=== PATIENT | female | born 1935 | race Caucasian/White ===

== ENCOUNTER 2024-05-04 16:42 | Inpatient (IN) | payer OTHER ==
[2024-05-04] MEDS: LACTATED RINGERS SOLUTION 1000 ML INFUS.BAG IV ONE (17:47)
[2024-05-04 18:02] LABS: VENOUS BASE EXCESS 4.3 mmol/L (-2-2); VENOUS O2 SATURATION 39.7 % (70-80); VENOUS PCO2 51.7 mmHg (38-52); VENOUS PH 7.39 (7.310-7.410)
[2024-05-04 18:03] LABS: BASO % 0.1 % (0-2.0); EOS % 0.9 % (0-4.5); HEMATOCRIT 47.2 % (32.4-45.2); HEMOGLOBIN 14.8 GM/dL (10.7-15.3); LYMPH % 27.2 % (8-40); MCH 29.1 pg (25.7-33.7); MCHC 31.4 g/dl (32.0-36.0); MEAN CELL VOLUME 92.7 fl (80-96); MEAN PLT VOLUME 11.4 fl (7.5-11.1); MONO % 5.6 % (3.8-10.2); NEUT % 66.2 % (42.8-82.8); PLATELET COUNT 193 10^3/uL (134-434); RBC 5.09 M/mm3 (3.60-5.2)
[2024-05-04 18:19] LABS: EPI CELLS 9 /uL (0-25.1); HYALINE CASTS 0 /uL (0-3.1); PH,URINE 5.5 (5.0-8.0); URINE APPEARANCE CLEAR; URINE BACTERIA 826 /uL (0-1359); URINE BILIRUBIN NEGATIVE (NEGATIVE); URINE COLOR YELLOW; URINE GLUCOSE (UA) NEGATIVE (NEGATIVE); URINE KETONE TRACE (NEGATIVE); URINE LEUK ESTERASE NEGATIVE (NEGATIVE); URINE NITRITE NEGATIVE (NEGATIVE); URINE PROTEIN 1+ (NEGATIVE); URINE WBC 9 /uL (0-25.8)
[2024-05-04 18:24] LABS: CHLORIDE 134 mmol/L (98-107); POTASSIUM 4.4 mmol/L (3.5-5.1)
[2024-05-04 18:26] LABS: URINE RBC 15.6 /uL (0-23.9)
[2024-05-04 18:27] LABS: CALCIUM 10.2 mg/dL (8.5-10.1)
[2024-05-04 18:28] LABS: ALBUMIN 2.8 g/dl (3.4-5.0); BLOOD UREA NITROGEN 46.2 mg/dL (7-18); CO2 33 mmol/L (21-32); GLUCOSE,RANDOM 130 mg/dL (74-106); MAGNESIUM 2.9 mg/dL (1.8-2.4)
[2024-05-04] MEDS ORDERED: ACETAMINOPHEN INJECTION 100 ML ONE (18:28)
[2024-05-04] MEDS ORDERED: ALBUTEROL SO4 0.083% IH SOL 2.5 MG/3 ML VIAL.NEB. NEB ONE (18:28)
[2024-05-04 18:31] LABS: CREATININE 1.2 mg/dL (0.55-1.3); SGOT/AST 97 U/L (15-37); SGPT/ALT 55 U/L (13-61)
[2024-05-04 18:33] LABS: BILIRUBIN,TOTAL 0.4 mg/dL (0.2-1); TOT PROT 8.4 g/dl (6.4-8.2)
[2024-05-04 18:34] LABS: ALK PHOS 163 U/L (45-117)
[2024-05-04 18:40] LABS: ANION GAP 1 mmol/L (4-13); LACTIC ACID 2.2 mmol/L (0.4-2.0); SODIUM 167 mmol/L (136-145)
[2024-05-04] MEDS: ALBUTEROL SO4 0.083% IH SOL 2.5 MG/3 ML VIAL.NEB. NEB ONE (18:46)
[2024-05-04] MEDS: ACETAMINOPHEN 1000 MG/100 ML BAG IVPB ONE (18:46)
[2024-05-04 19:20] LABS: CHLORIDE 134 mmol/L (98-107); POTASSIUM 5.4 mmol/L (3.5-5.1)
[2024-05-04 19:22] LABS: CALCIUM 8.9 mg/dL (8.5-10.1); CO2 31 mmol/L (21-32); GLUCOSE,RANDOM 142 mg/dL (74-106)
[2024-05-04 19:24] LABS: ANION GAP -2 mmol/L (4-13); SODIUM 163 mmol/L (136-145)
[2024-05-04 19:25] LABS: CREATININE 1.2 mg/dL (0.55-1.3); SGOT/AST 101 U/L (15-37); SGPT/ALT 44 U/L (13-61)
[2024-05-04 19:26] LABS: BILIRUBIN,TOTAL 0.6 mg/dL (0.2-1); TOT PROT 6.9 g/dl (6.4-8.2)
[2024-05-04 19:28] LABS: ALK PHOS 136 U/L (45-117)
[2024-05-04 20:21] LABS: CREATININE, URINE RANDOM < 13.0 mg/dL (30-150)
[2024-05-04 20:37] LABS: LACTIC ACID 2.3 mmol/L (0.4-2.0)
[2024-05-04 21:41] LABS: CHLORIDE 135 mmol/L (98-107); POTASSIUM 3.7 mmol/L (3.5-5.1)
[2024-05-04 21:44] LABS: CALCIUM 9.1 mg/dL (8.5-10.1)
[2024-05-04 21:45] LABS: ALBUMIN 2.4 g/dl (3.4-5.0); BLOOD UREA NITROGEN 41.3 mg/dL (7-18); CO2 27 mmol/L (21-32); GLUCOSE,RANDOM 144 mg/dL (74-106)
[2024-05-04 21:48] LABS: ANION GAP 2 mmol/L (4-13); CREATININE 1.1 mg/dL (0.55-1.3); SGOT/AST 80 U/L (15-37); SGPT/ALT 44 U/L (13-61); SODIUM 164 mmol/L (136-145)
[2024-05-04 21:49] LABS: BILIRUBIN,TOTAL 0.4 mg/dL (0.2-1); TOT PROT 6.8 g/dl (6.4-8.2)
[2024-05-04 21:51] LABS: ALK PHOS 139 U/L (45-117)
[2024-05-05] MEDS: HEPARIN NA (PORCINE) 5,000 UNITS/ML 1ML VIAL SQ SCH (00:43)
[2024-05-05] MEDS: SODIUM CHLORIDE 0.45% 1,000 ML IV SCH (00:45)
[2024-05-05 07:02] LABS: HEMATOCRIT 36.7 % (32.4-45.2); HEMOGLOBIN 11.5 GM/dL (10.7-15.3); MCHC 31.3 g/dl (32.0-36.0); MEAN CELL VOLUME 92.8 fl (80-96); MEAN PLT VOLUME 11.2 fl (7.5-11.1); PLATELET COUNT 122 10^3/uL (134-434); RBC 3.95 M/mm3 (3.60-5.2); RDW 19.5 % (11.6-15.6); WHITE BLOOD COUNT 10.4 K/mm3 (4.0-10.0)
[2024-05-05 07:21] LABS: CHLORIDE 135 mmol/L (98-107); POTASSIUM 3.6 mmol/L (3.5-5.1)
[2024-05-05 07:23] LABS: ALBUMIN 2.2 g/dl (3.4-5.0); CALCIUM 9.1 mg/dL (8.5-10.1); CO2 30 mmol/L (21-32); GLUCOSE,RANDOM 112 mg/dL (74-106); MAGNESIUM 2.5 mg/dL (1.8-2.4)
[2024-05-05 07:27] LABS: PHOSPHOROUS 2.8 mg/dL (2.5-4.9); SGOT/AST 67 U/L (15-37); SGPT/ALT 43 U/L (13-61)
[2024-05-05 07:29] LABS: ALK PHOS 133 U/L (45-117); BILIRUBIN,TOTAL 0.4 mg/dL (0.2-1); TOT PROT 6.3 g/dl (6.4-8.2)
[2024-05-05 07:42] LABS: ANION GAP 0 mmol/L (4-13); SODIUM 166 mmol/L (136-145)
[2024-05-05 13:42] VITALS: BMI 14.7
[2024-05-05] MEDS ORDERED: DEXTROSE 5%-WATER - 1,000 ML with POTASSIUM CHLORIDE 10 MEQ IV SCH (14:00)
[2024-05-05] MEDS: POTASSIUM CHLORIDE 10 MEQ in DEXTROSE 5%-WATER - 1,000 ML IV SCH (15:37)
[2024-05-06 08:21] LABS: CHLORIDE 130 mmol/L (98-107); POTASSIUM 3.7 mmol/L (3.5-5.1)
[2024-05-06 08:22] LABS: SODIUM 161 mmol/L (136-145)
[2024-05-06 08:25] LABS: CALCIUM 9.2 mg/dL (8.5-10.1)
[2024-05-06 08:26] LABS: ALBUMIN 2.2 g/dl (3.4-5.0); ANION GAP 0 mmol/L (4-13); CO2 31 mmol/L (21-32)
[2024-05-06 08:28] LABS: BLOOD UREA NITROGEN 41.5 mg/dL (7-18); GLUCOSE,RANDOM 142 mg/dL (74-106)
[2024-05-06 08:29] LABS: CREATININE 1.1 mg/dL (0.55-1.3); SGOT/AST 50 U/L (15-37); SGPT/ALT 35 U/L (13-61)
[2024-05-06 08:31] LABS: BILIRUBIN,TOTAL 0.4 mg/dL (0.2-1); TOT PROT 6.4 g/dl (6.4-8.2)
[2024-05-06 08:33] LABS: ALK PHOS 129 U/L (45-117)
[2024-05-06] MEDS: POLYETHYLENE GLYCOL (HEALTHYLAX) 3350 17 GM PACKET PO SCH (10:13)
[2024-05-06] MEDS: ASCORBIC ACID 500 MG TABLET (FP) PO SCH (10:13)
[2024-05-06] MEDS: ARTIFICIAL TEARS OPHTHALMIC DROPS OU SCH (11:43)
[2024-05-06] MEDS: VALPROATE SODIUM 250 MG/5 ML UNIT DOSE CUP PO SCH (21:41)
[2024-05-06] MEDS: MELATONIN 5 MG TABLETS PO SCH (21:42)
[2024-05-07] MEDS: VALPROIC ACID 250 MG CAPSULE PO SCH (07:11)
[2024-05-07 07:40] LABS: POTASSIUM 3.7 mmol/L (3.5-5.1)
[2024-05-07 07:48] LABS: BLOOD UREA NITROGEN 26.7 mg/dL (7-18); CREATININE 0.8 mg/dL (0.55-1.3)
[2024-05-07 07:49] LABS: BILIRUBIN,TOTAL 0.4 mg/dL (0.2-1); TOT PROT 5.9 g/dl (6.4-8.2)
[2024-05-07 07:52] LABS: CALCIUM 8.7 mg/dL (8.5-10.1)
[2024-05-07 07:55] LABS: MAGNESIUM 2.3 mg/dL (1.8-2.4)
[2024-05-07 08:05] LABS: HEMOGLOBIN 10.6 GM/dL (10.7-15.3); MCHC 31.2 g/dl (32.0-36.0); MEAN CELL VOLUME 92.9 fl (80-96); MEAN PLT VOLUME 11.4 fl (7.5-11.1); PLATELET COUNT 117 10^3/uL (134-434); RBC 3.66 M/mm3 (3.60-5.2); RDW 18.7 % (11.6-15.6); WHITE BLOOD COUNT 10.3 K/mm3 (4.0-10.0)
[2024-05-07] MEDS ORDERED: COLLAGENASE CLOSTRIDIUM HIST. 30 GRAMS TUBE TP SCH (13:30)
[2024-05-07] MEDS: POTASSIUM CHLORIDE 10 MEQ in DEXTROSE 5%-WATER - 1,000 ML IV SCH (17:42)
[2024-05-08] MEDS: VALPROATE SODIUM 250 MG/5 ML UNIT DOSE CUP PO SCH (06:40)
[2024-05-08 07:36] LABS: HEMATOCRIT 32.6 % (32.4-45.2); HEMOGLOBIN 10.3 GM/dL (10.7-15.3); MCH 29.1 pg (25.7-33.7); MCHC 31.6 g/dl (32.0-36.0); MEAN CELL VOLUME 92.2 fl (80-96); MEAN PLT VOLUME 11.8 fl (7.5-11.1); PLATELET COUNT 121 10^3/uL (134-434); RBC 3.53 M/mm3 (3.60-5.2); RDW 18.8 % (11.6-15.6); WHITE BLOOD COUNT 10.9 K/mm3 (4.0-10.0)
[2024-05-08 07:55] LABS: POTASSIUM 3.7 mmol/L (3.5-5.1)
[2024-05-08 08:20] LABS: CALCIUM 8.5 mg/dL (8.5-10.1)
[2024-05-08 08:22] LABS: ALBUMIN 1.9 g/dl (3.4-5.0); BLOOD UREA NITROGEN 16.1 mg/dL (7-18)
[2024-05-08 08:25] LABS: CREATININE 0.7 mg/dL (0.55-1.3)
[2024-05-08 08:27] LABS: BILIRUBIN,TOTAL 0.4 mg/dL (0.2-1); TOT PROT 5.6 g/dl (6.4-8.2)
[2024-05-08] MEDS: POTASSIUM CHLORIDE 10 MEQ in DEXTROSE 5%-WATER - 1,000 ML IV SCH (14:10)
[2024-05-08] MEDS ORDERED: VALPROATE SODIUM 500 MG/5 ML VIAL IVPB SCH ×2 (16:00→22:00)
[2024-05-08] MEDS: VALPROATE SODIUM IVPB SCH (16:54)
[2024-05-08] MEDS: SODIUM CHLORIDE IVPB SCH (16:54)
[2024-05-09 07:31] LABS: MCH 29.3 pg (25.7-33.7); MCHC 32.5 g/dl (32.0-36.0); MEAN PLT VOLUME 10.8 fl (7.5-11.1); PLATELET COUNT 125 10^3/uL (134-434); RBC 3.77 M/mm3 (3.60-5.2); RDW 17.4 % (11.6-15.6); WHITE BLOOD COUNT 9.2 K/mm3 (4.0-10.0)
[2024-05-09 07:41] LABS: CHLORIDE 111 mmol/L (98-107); POTASSIUM 3.7 mmol/L (3.5-5.1); SODIUM 142 mmol/L (136-145)
[2024-05-09 07:49] LABS: ANION GAP 3 mmol/L (4-13); BLOOD UREA NITROGEN 10.5 mg/dL (7-18); CO2 28 mmol/L (21-32); GLUCOSE,RANDOM 100 mg/dL (74-106)
[2024-05-09 07:52] LABS: CREATININE 0.5 mg/dL (0.55-1.3)
[2024-05-09 07:56] LABS: CALCIUM 6.8 mg/dL (8.5-10.1)
[2024-05-09 09:26] LABS: ALBUMIN 1.9 g/dl (3.4-5.0)
[2024-05-09] MEDS: SODIUM CHLORIDE IVPB SCH (11:15)
[2024-05-09] MEDS: VALPROATE SODIUM IVPB SCH (11:15)
[2024-05-09] MEDS ORDERED: AMINO ACIDS/PROTEIN HYDROLYS 30 ML LIQUID.PKT PO SCH ×2 (17:30)
[2024-05-10 09:19] LABS: ALBUMIN 1.8 g/dl (3.4-5.0); BLOOD UREA NITROGEN 7.3 mg/dL (7-18)
[2024-05-10 09:22] LABS: CREATININE 0.5 mg/dL (0.55-1.3)
[2024-05-10 09:23] LABS: BILIRUBIN,TOTAL 0.4 mg/dL (0.2-1); TOT PROT 5.4 g/dl (6.4-8.2)
[2024-05-10] MEDS: ZINC SULFATE 220 MG CAPSULE (FP) PO SCH (17:25)
[2024-05-10] MEDS: MULTIVITAMINS (DAILY MVI) TABLET (FP) PO SCH (17:25)
[2024-05-11 09:14] LABS: POTASSIUM 4.2 mmol/L (3.5-5.1)
[2024-05-11 09:24] LABS: ALBUMIN 1.8 g/dl (3.4-5.0)
[2024-05-11 09:26] LABS: CREATININE 0.5 mg/dL (0.55-1.3)
[2024-05-11 09:28] LABS: BILIRUBIN,TOTAL 0.4 mg/dL (0.2-1); TOT PROT 5.7 g/dl (6.4-8.2)
[2024-05-11] MEDS: VALPROATE SODIUM 250 MG/5 ML UNIT DOSE CUP PO SCH ×2 (10:41→21:11)
[2024-05-12] MEDS ORDERED: VALPROATE SODIUM 500 MG/5 ML VIAL IVPB ONE (01:30)
[2024-05-12] MEDS: VALPROATE SODIUM IVPB ONE (02:30)
[2024-05-12] MEDS: SODIUM CHLORIDE IVPB ONE (02:30)
[2024-05-12 09:19] LABS: CALCIUM 9.2 mg/dL (8.5-10.1)
[2024-05-12 09:20] LABS: ALBUMIN 1.9 g/dl (3.4-5.0); BLOOD UREA NITROGEN 8.6 mg/dL (7-18)
[2024-05-12 09:23] LABS: CREATININE 0.4 mg/dL (0.55-1.3)
[2024-05-12 09:24] LABS: BILIRUBIN,TOTAL 0.3 mg/dL (0.2-1); TOT PROT 5.8 g/dl (6.4-8.2)
[2024-05-13 15:56] VITALS: RESP 20
[2024-05-13 18:25] VITALS: BP 130/53; PULSE 91; TEMP 97.5
== END 2024-05-13 18:36 | DRG 640 ==
LOC: JER 16:42 → JERBED 19:04 → J4W 05-05 00:41
PROVIDERS: ADMIT Internal Medicine; ATTEND Internal Medicine
DX: E86.0 Dehydration (principal); E43 Unspecified severe protein-calorie malnutrition; Z68.1 Body mass index [BMI] 19.9 or less, adult; I69.351 Hemiplegia and hemiparesis following cerebral infarction affecting right dominant side; N17.9 Acute kidney failure, unspecified; R64 Cachexia; R65.10 Systemic inflammatory response syndrome (SIRS) of non-infectious origin without acute organ dysfunction; E87.0 Hyperosmolality and hypernatremia; R62.7 Adult failure to thrive; G30.9 Alzheimer's disease, unspecified; G40.909 Epilepsy, unspecified, not intractable, without status epilepticus; I10 Essential (primary) hypertension; L89.152 Pressure ulcer of sacral region, stage 2; F02.80 Dementia in other diseases classified elsewhere, unspecified severity, without behavioral disturbance, psychotic disturbance, mood disturbance, and anxiety; E78.5 Hyperlipidemia, unspecified; E87.5 Hyperkalemia; R74.01 Elevation of levels of liver transaminase levels
CPT/HCPCS: 0241U-QW; 36415; 71045-TC-FY; 76775-TC; 80048; 80053; 81003; 82040; 82436; 82550; 82553; 82570; 82803; 82962; 83605; 83735; 84100; 84133; 84300; 84443; 84484; 85025; 85027; 86850; 86900; 86901; 87040; 87086; 93005; 93010; 97161-GP; 99291; J0131; J1644

== ENCOUNTER 2024-05-24 06:58 | Inpatient (IN) | payer OTHER ==
[2024-05-24 07:03] VITALS: BMI 20.7
[2024-05-24] MEDS ORDERED: ACETAMINOPHEN INJECTION 100 ML ONE (08:41)
[2024-05-24 08:45] LABS: BASO % 0.1 % (0-2.0); EOS % 1.2 % (0-4.5); HEMATOCRIT 35.3 % (32.4-45.2); HEMOGLOBIN 11.5 GM/dL (10.7-15.3); LYMPH % 25.2 % (8-40); MCH 29.3 pg (25.7-33.7); MCHC 32.6 g/dl (32.0-36.0); MEAN PLT VOLUME 7.6 fl (7.5-11.1); MONO % 6.7 % (3.8-10.2); NEUT % 66.8 % (42.8-82.8); PLATELET COUNT 427 10^3/uL (134-434); RBC 3.92 M/mm3 (3.60-5.2); RDW 18.8 % (11.6-15.6); WHITE BLOOD COUNT 12.3 K/mm3 (4.0-10.0)
[2024-05-24 08:53] LABS: INR 0.9 (0.83-1.09); PROTHROMBIN TIME (PATIENT) 10.4 SEC (9.7-13.0)
[2024-05-24 08:56] LABS: ACTIVATED PTT 29.2 SECONDS (25.2-36.5)
[2024-05-24 09:18] LABS: POTASSIUM 3.4 mmol/L (3.5-5.1)
[2024-05-24 09:19] LABS: CALCIUM 9.3 mg/dL (8.5-10.1)
[2024-05-24 09:20] LABS: ALBUMIN 1.9 g/dl (3.4-5.0); BLOOD UREA NITROGEN 6.1 mg/dL (7-18)
[2024-05-24] MEDS: SODIUM CHLORIDE 0.9% 1000 ML INFUS.BAG IV ONE (09:20)
[2024-05-24] MEDS: ACETAMINOPHEN 1000 MG/100 ML BAG IVPB ONE (09:20)
[2024-05-24 09:23] LABS: CREATININE 0.4 mg/dL (0.55-1.3)
[2024-05-24 09:25] LABS: BILIRUBIN,TOTAL 0.5 mg/dL (0.2-1); TOT PROT 6.8 g/dl (6.4-8.2)
[2024-05-24 09:39] LABS: EPI CELLS 6 /uL (0-25.1); HYALINE CASTS 0 /uL (0-3.1); URINE APPEARANCE TURBID; URINE BACTERIA >9,000 /uL (0-1359); URINE BILIRUBIN NEGATIVE (NEGATIVE); URINE COLOR YELLOW; URINE GLUCOSE (UA) NEGATIVE (NEGATIVE); URINE KETONE NEGATIVE (NEGATIVE); URINE LEUK ESTERASE 3+ (NEGATIVE); URINE NITRITE NEGATIVE (NEGATIVE); URINE PROTEIN 1+ (NEGATIVE); URINE WBC 1525 /uL (0-25.8)
[2024-05-24 09:42] LABS: URINE RBC 33.3 /uL (0-23.9)
[2024-05-24] MEDS ORDERED: CEFTRIAXONE 1 GM/50 ML BAG ONE (09:59)
[2024-05-24] MEDS: CEFTRIAXONE 1 GM in DEXTROSE 5%-WATER - 100 ML IVPB ONE (10:05)
[2024-05-24] MEDS: LACTATED RINGERS SOLUTION 1000 ML INFUS.BAG IV ONE (11:00)
[2024-05-24] MEDS: KCL 20 MEQ PREMIX BAG 20 MEQ/100 ML INFUS.BAG IVPB ONE (11:06)
[2024-05-24] MEDS: ACETAMINOPHEN 325 MG TABLET (FP) PO SCH (12:06)
[2024-05-24] MEDS: SODIUM CHLORIDE 1,000 ML IV STA (12:45)
[2024-05-24] MEDS: KCL 10 MEQ IVPB 10 MEQ/100 ML INFUS.BAG IVPB SCH (12:45)
[2024-05-24] MEDS ORDERED: KCL 10 MEQ IVPB 10 MEQ/100 ML INFUS.BAG IVPB ONE (12:47)
[2024-05-24] MEDS ORDERED: PATIENT'S OWN MEDICATION (NON-FORMULARY) (Argin/Glut/Cahmb/Collag/Mv-Min [Juven Packet] 1 PO SCH (22:00)
[2024-05-24] MEDS: AMINO ACIDS 4.25%/D5W 2,000 ML IV SCH (23:08)
[2024-05-24] MEDS: VALPROATE SODIUM 250 MG/5 ML UNIT DOSE CUP PO SCH (23:09)
[2024-05-24] MEDS: ASCORBIC ACID 500 MG TABLET (FP) PO SCH (23:10)
[2024-05-24] MEDS: ARTIFICIAL TEARS OPHTHALMIC DROPS OU SCH (23:10)
[2024-05-24] MEDS: LIDOCAINE PATCH REMOVAL MC SCH (23:10)
[2024-05-24] MEDS: MELATONIN 5 MG TABLETS PO SCH (23:10)
[2024-05-25] MEDS: VALPROATE SODIUM 250 MG/5 ML UNIT DOSE CUP PO SCH (06:03)
[2024-05-25] MEDS: ENOXAPARIN NA (PORCINE) 40 MG/0.4 ML DISP.SYRIN SQ SCH (09:39)
[2024-05-25] MEDS: LIDOCAINE 4% PATCH TP SCH (09:39)
[2024-05-25] MEDS: CEFTRIAXONE 1 GM in DEXTROSE 5%-WATER - 50 ML IVPB SCH (09:39)
[2024-05-25 09:58] LABS: HEMOGLOBIN 8.6 GM/dL (10.7-15.3); MCH 29.6 pg (25.7-33.7); MEAN CELL VOLUME 89.9 fl (80-96); MEAN PLT VOLUME 7.7 fl (7.5-11.1); PLATELET COUNT 345 10^3/uL (134-434); RBC 2.89 M/mm3 (3.60-5.2); RDW 18.7 % (11.6-15.6); WHITE BLOOD COUNT 8.7 K/mm3 (4.0-10.0)
[2024-05-25] MEDS ORDERED: SENNOSIDES 8.6MG TABLET (FP) PO SCH (10:00)
[2024-05-25 10:18] LABS: CHLORIDE 107 mmol/L (98-107); SODIUM 139 mmol/L (136-145)
[2024-05-25 10:22] LABS: POTASSIUM 2.7 mmol/L (3.5-5.1)
[2024-05-25 10:25] LABS: ANION GAP 4 mmol/L (4-13); BLOOD UREA NITROGEN 10.9 mg/dL (7-18); CALCIUM 8.4 mg/dL (8.5-10.1); CO2 28 mmol/L (21-32); GLUCOSE,RANDOM 125 mg/dL (74-106); MAGNESIUM 1.5 mg/dL (1.8-2.4)
[2024-05-25 10:26] LABS: ALBUMIN 1.4 g/dl (3.4-5.0)
[2024-05-25 10:28] LABS: SGOT/AST 15 U/L (15-37); SGPT/ALT 9 U/L (13-61)
[2024-05-25 10:29] LABS: CREATININE 0.4 mg/dL (0.55-1.3)
[2024-05-25 10:30] LABS: BILIRUBIN,TOTAL 0.2 mg/dL (0.2-1)
[2024-05-25 10:33] LABS: ALK PHOS 90 U/L (45-117)
[2024-05-25] MEDS: PANTOPRAZOLE 40 MG TABLET PO SCH (10:43)
[2024-05-25] MEDS: MAGNESIUM HYDROX 2400MG/30ML ORAL SUSPENSION 30 ML CUP PO SCH (10:43)
[2024-05-25] MEDS: POLYETHYLENE GLYCOL (HEALTHYLAX) 3350 17 GM PACKET PO SCH (10:43)
[2024-05-25] MEDS: SENNOSIDES 8.6MG TABLET (FP) PO SCH (10:43)
[2024-05-25] MEDS: THIAMINE 100 MG TABLET PO SCH (10:43)
[2024-05-25] MEDS: MAGNESIUM 2GM/50ML STERILE WATER IVPB IVPB ONE (10:45)
[2024-05-25] MEDS: KCL 10 MEQ IVPB 10 MEQ/100 ML INFUS.BAG IVPB SCH (12:12)
[2024-05-25] MEDS: ZINC OXIDE 20% TOPICAL OINTMENT 30 GM TUBE TP SCH (15:33)
[2024-05-25] MEDS: ACETAMINOPHEN 1000 MG/100 ML BAG IVPB PRN (15:40)
[2024-05-25] MEDS: THIAMINE HCL 200 MG/2 ML VIAL IVPB SCH (17:12)
[2024-05-25] MEDS ORDERED: VALPROATE SODIUM 500 MG/5 ML VIAL IVPB SCH (22:00)
[2024-05-25] MEDS: VALPROATE SODIUM INJECTION 750 MG in SODIUM CHLORIDE 100 ML IVPB SCH (23:29)
[2024-05-26] MEDS: SODIUM PHOSPHATE - 30 MM in SODIUM CHLORIDE 500 ML IVPB ONE (03:11)
[2024-05-26] MEDS ORDERED: VALPROATE SODIUM 500 MG/5 ML VIAL IVPB SCH (07:00)
[2024-05-26 10:39] LABS: BASO % 0.2 % (0-2.0); EOS % 1.9 % (0-4.5); HEMATOCRIT 29.1 % (32.4-45.2); HEMOGLOBIN 9.9 GM/dL (10.7-15.3); LYMPH % 28.9 % (8-40); MCH 30.3 pg (25.7-33.7); MCHC 34.1 g/dl (32.0-36.0); MEAN CELL VOLUME 88.6 fl (80-96); MEAN PLT VOLUME 7.3 fl (7.5-11.1); PLATELET COUNT 384 10^3/uL (134-434); RBC 3.28 M/mm3 (3.60-5.2); RDW 18.7 % (11.6-15.6); WHITE BLOOD COUNT 11.2 K/mm3 (4.0-10.0)
[2024-05-26] MEDS: VALPROATE SODIUM INJECTION 500 MG in DEXTROSE 5%-WATER - 100 ML IVPB SCH (10:52)
[2024-05-26 11:01] LABS: CHLORIDE 108 mmol/L (98-107); SODIUM 140 mmol/L (136-145)
[2024-05-26 11:11] LABS: BLOOD UREA NITROGEN 10.2 mg/dL (7-18); CALCIUM 8.2 mg/dL (8.5-10.1); CO2 29 mmol/L (21-32); GLUCOSE,RANDOM 89 mg/dL (74-106)
[2024-05-26 11:12] LABS: MAGNESIUM 1.4 mg/dL (1.8-2.4)
[2024-05-26 11:14] LABS: CREATININE 0.3 mg/dL (0.55-1.3); PHOSPHOROUS 4.2 mg/dL (2.5-4.9); SGOT/AST 16 U/L (15-37); SGPT/ALT 10 U/L (13-61)
[2024-05-26 11:15] LABS: ALBUMIN 1.8 g/dl (3.4-5.0); ANION GAP 4 mmol/L (4-13); BILIRUBIN,TOTAL 0.2 mg/dL (0.2-1); POTASSIUM 2.9 mmol/L (3.5-5.1); TOT PROT 6.3 g/dl (6.4-8.2)
[2024-05-26 11:17] LABS: ALK PHOS 108 U/L (45-117)
[2024-05-26] MEDS: KCL 10 MEQ IVPB 10 MEQ/100 ML INFUS.BAG IVPB SCH (13:15)
[2024-05-26] MEDS: MAGNESIUM SULF 50% (8.12 MEQ/2 ML-1 GM VIAL) IVPB ONE (14:43)
[2024-05-26] MEDS: MAGNESIUM SULFATE IN WATER 4 GM/50 ML BAG IVPB ONE (14:44)
[2024-05-26] MEDS: MAGNESIUM 4GM/H20 - 4 GM/100 ML IVPB IVPB ONE (17:27)
[2024-05-26] MEDS: VALPROATE SODIUM IVPB SCH (21:23)
[2024-05-26] MEDS: DEXTROSE 5% IVPB SCH (21:23)
[2024-05-26] MEDS: WATER IVPB SCH (21:23)
[2024-05-27] MEDS: AMINO ACIDS 4.25%/D5W 2,000 ML IV SCH (07:58)
[2024-05-27] MEDS: AMINO ACIDS 4.25%/D5W 1,000 ML IV SCH (08:00)
[2024-05-27 09:22] LABS: BASO % 0.4 % (0-2.0); EOS % 1.9 % (0-4.5); HEMATOCRIT 34.3 % (32.4-45.2); HEMOGLOBIN 11.4 GM/dL (10.7-15.3); LYMPH % 19.8 % (8-40); MCH 30.1 pg (25.7-33.7); MCHC 33.2 g/dl (32.0-36.0); MEAN CELL VOLUME 90.6 fl (80-96); MEAN PLT VOLUME 7.6 fl (7.5-11.1); MONO % 4.7 % (3.8-10.2); NEUT % 73.2 % (42.8-82.8); PLATELET COUNT 432 10^3/uL (134-434); RBC 3.78 M/mm3 (3.60-5.2); RDW 18.9 % (11.6-15.6); WHITE BLOOD COUNT 10.7 K/mm3 (4.0-10.0)
[2024-05-27 09:43] LABS: BLOOD UREA NITROGEN 4.1 mg/dL (7-18); CALCIUM 8.6 mg/dL (8.5-10.1); MAGNESIUM 2.3 mg/dL (1.8-2.4)
[2024-05-27 09:46] LABS: CREATININE 0.4 mg/dL (0.55-1.3); PHOSPHOROUS 2.6 mg/dL (2.5-4.9)
[2024-05-27 09:48] LABS: BILIRUBIN,TOTAL 0.3 mg/dL (0.2-1)
[2024-05-27] MEDS: HALOPERIDOL LACTATE 5 MG/ML IM PRN (12:47)
[2024-05-27] MEDS: LORazepam 2 MG/ML SDV VIAL IVPUSH ONE (13:45)
[2024-05-27] MEDS: POTASSIUM CHLORIDE 20 MEQ in AMINO ACIDS 4.25%/D5W 2,000 ML IV SCH (13:46)
[2024-05-27] MEDS: CEFTRIAXONE 1 G/50 ML PREMIX 50 ML IVPB SCH (13:47)
[2024-05-27] MEDS: KCL 10 MEQ IVPB 10 MEQ/100 ML INFUS.BAG IVPB SCH (13:47)
[2024-05-27] MEDS ORDERED: MORPHINE 100 MG/100 ML MG ONE (16:30)
[2024-05-27] MEDS: MORPHINE SULFATE/0.9% NACL/PF 100 MG/100 ML BAG IVPB SCH (16:33)
[2024-05-28] MEDS ORDERED: MORPHINE 100 MG/100 ML MG ONE (17:26)
[2024-05-28] MEDS: HYPROMELLOSE TP SCH (20:02)
[2024-05-29] MEDS: MORPHINE 100 MG/100 ML MG IVPB SCH (18:09)
[2024-05-30 14:03] VITALS: BP 121/43; PULSE 71; RESP 14; TEMP 99.6
== END 2024-05-30 18:25 | disposition hospice, inpatient (51) | DRG 689 ==
LOC: JER 06:58 → JERBED 10:49 → J7W 13:23 → J5S 20:21
PROVIDERS: ADMIT Internal Medicine; ATTEND Internal Medicine
DX: N39.0 Urinary tract infection, site not specified (principal); E43 Unspecified severe protein-calorie malnutrition; R53.2 Functional quadriplegia; I69.351 Hemiplegia and hemiparesis following cerebral infarction affecting right dominant side; R63.0 Anorexia; G30.9 Alzheimer's disease, unspecified; F02.80 Dementia in other diseases classified elsewhere, unspecified severity, without behavioral disturbance, psychotic disturbance, mood disturbance, and anxiety; R62.7 Adult failure to thrive; Z68.20 Body mass index [BMI] 20.0-20.9, adult; E87.6 Hypokalemia
CPT/HCPCS: 0241U-QW; 36415; 71045-TC-FY; 80053; 81003; 83735; 84100; 84443; 84484; 85025; 85027; 85610; 85730; 86850; 86900; 86901; 87086; 87186; 93005; 93010; 99285-25; J0131